=== PATIENT | male | born 2000 | race Caucasian/White ===

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

== ENCOUNTER 2021-06-19 09:52 | Emergency (ER) | payer OTHER ==
[~2021-06-19] VITALS: Ht 167.6 cm; Wt 141.7 kg
[2021-06-19 11:24] VITALS: BP 140/79
== END 2021-06-19 15:14 | disposition home or self-care (01) ==
LOC: M ED 09:52
DX: S93.402A Sprain of unspecified ligament of left ankle, initial encounter (principal); X58.XXXA Exposure to other specified factors, initial encounter; Y92.89 Other specified places as the place of occurrence of the external cause; Y93.9 Activity, unspecified; Y99.0 Civilian activity done for income or pay; F17.200 Nicotine dependence, unspecified, uncomplicated; Z88.0 Allergy status to penicillin

== ENCOUNTER 2021-11-16 20:13 | Emergency (ER) | payer OTHER ==
[~2021-11-16] VITALS: Ht 177.8 cm; Wt 136.4 kg
[2021-11-17] MEDS ORDERED: METH-1164 PO (00:59)
[2021-11-17] MEDS ORDERED: ACETAMINOPHEN 500 MG TAB PO ONE (01:00)
[2021-11-17] MEDS ORDERED: methocarbamoL 500 MG TAB PO ONE (01:00)
[2021-11-17 01:17] VITALS: BP 154/89
== END 2021-11-17 01:22 | disposition home or self-care (01) ==
LOC: M ED 20:13
DX: R52 Pain, unspecified (principal); F17.200 Nicotine dependence, unspecified, uncomplicated; Z88.0 Allergy status to penicillin

== ENCOUNTER 2023-09-04 13:10 | Emergency (ER) | payer OTHER ==
[~2023-09-04] VITALS: Ht 175.3 cm; Wt 136.4 kg
[~2023-09-04 13:10] MED LIST: METH-1164 PO
[2023-09-04 14:01] LABS: BASO # 0.1 10^3/uL (0.0-0.2); BASO % 0.7 % (0.0-1.0); EOS # 0.1 10^3/uL (0.0-0.5); EOS % 1.5 % (0.0-3.0); HEMATOCRIT 40.7 % (42.0-52.0); HEMOGLOBIN 14.4 g/dl (13.5-17.5); LYMPH # 1.4 10^3/uL (1.5-5.0); LYMPH % 19.4 % (24.0-44.0); MEAN CORPUSCULAR HEMOGLOBIN 29.9 pg (27.0-33.0); MEAN CORPUSCULAR HGB CONC 35.4 g/dl (32.0-36.5); MEAN CORPUSCULAR VOLUME 84.4 fl (80.0-96.0); MONO # 0.7 10^3/uL (0.0-0.8); MONO % 9.1 % (2.0-8.0); PLATELET COUNT, AUTOMATED 246 10^3/uL (150-450); RED BLOOD COUNT 4.82 10^6/uL (4.30-6.10); WHITE BLOOD COUNT 7.2 10^3/uL (4.0-10.0)
[2023-09-04] MEDS: NS 1,000 ML IV ONE (14:30)
[2023-09-04 14:31] LABS: CK-MB VALUE MASS < 1.0 NG/ML (<3.6)
[2023-09-04 14:32] LABS: CPK CREATINE PHOSPHOKINASE 105 U/L (46-171); MB/CK RELATIVE INDEX 0.95 (< OR =4)
[2023-09-04 15:33] LABS: APPEARANCE, URINE CLEAR (CLEAR); BACTERIA, URINE AUTO NEGATIVE (NEGATIVE); BILIRUBIN, URINE AUTO NEGATIVE (NEGATIVE); BLOOD, URINE BLOOD NEGATIVE (NEGATIVE); COLOR, URINE YELLOW (YELLOW); GLUCOSE, URINE (UA) AUTO NEGATIVE (NEGATIVE); KETONE, URINE AUTO NEGATIVE (NEGATIVE); LEUKOCYTE ESTERASE, URINE AUTO NEGATIVE (NEGATIVE); MUCUS, URINE SMALL (NEGATIVE); NITRITE, URINE AUTO NEGATIVE (NEGATIVE); PROTEIN, URINE AUTO NEGATIVE (NEGATIVE); RBC, URINE AUTO 0 /HPF (0-3); SPECIFIC GRAVITY URINE AUTO 1.014 (1.002-1.035); SQUAMOUS EPITHELIAL CELL UR AU 0 /HPF (0-6); UROBILINOGEN, URINE AUTO 0.2 mg/dL (0.0-2.0); WBC, URINE AUTO 1 /HPF (0-3)
[2023-09-04 15:34] LABS: CK-MB VALUE MASS < 1.0 NG/ML (<3.6)
[2023-09-04 15:35] LABS: BLOOD UREA NITROGEN 13 MG/DL (9-23); CALCIUM LEVEL 9.8 MG/DL (8.5-10.1); CARBON DIOXIDE LEVEL 27 MMOL/L (20-31); CHLORIDE LEVEL 107 MMOL/L (98-107); CPK CREATINE PHOSPHOKINASE 104 U/L (46-171); CREATININE FOR GFR 0.77 MG/DL (0.70-1.30); GLOMERULAR FILTRATION RATE > 60.0 (>60); GLUCOSE, FASTING 117 MG/DL (60-100); MAGNESIUM LEVEL 1.8 MG/DL (1.8-2.4); MB/CK RELATIVE INDEX 0.96 (< OR =4); POTASSIUM SERUM 4.3 MMOL/L (3.5-5.1); SODIUM LEVEL 139 MMOL/L (136-145)
[2023-09-04 15:57] LABS: AMPHETAMINES LEVEL URINE NEGATIVE (NEGATIVE); BARBITURATES URINE NEGATIVE (NEGATIVE); BENZODIAZEPINES URINE NEGATIVE (NEGATIVE); CANNABINOIDS URINE NEGATIVE (NEGATIVE); COCAINE METABOLITE URINE NEGATIVE (NEGATIVE); METHADONE URINE NEGATIVE (NEGATIVE); OPIATES URINE NEGATIVE (NEGATIVE); PHENCYCLIDINE URINE NEGATIVE (NEGATIVE)
[2023-09-04] MEDS ORDERED: PEPC1TAB5 PO (16:10)
[2023-09-04] MEDS ORDERED: PANT40TA29 PO (16:10)
[2023-09-04 16:29] VITALS: BP 138/83; TEMP 97.8; O2SAT 98
== END 2023-09-04 16:35 | disposition home or self-care (01) ==
LOC: M ED 13:10 → EDBD 13:10 → M ED 16:35
DX: K21.9 Gastro-esophageal reflux disease without esophagitis (principal); Z88.1 Allergy status to other antibiotic agents; F17.200 Nicotine dependence, unspecified, uncomplicated

== ENCOUNTER 2025-03-10 18:41 | Emergency (ER) | payer OTHER ==
[~2025-03-10] VITALS: Ht 177.8 cm; Wt 164.5 kg
[~2025-03-10 18:41] MED LIST changes: +PANT40TA29 PO; +PEPC1TAB5 PO
[2025-03-10 20:42] VITALS: BP 134/81; TEMP 97.8; O2SAT 97
== END 2025-03-10 20:47 | disposition home or self-care (01) ==
LOC: M ED 18:41
DX: S16.1XXA Strain of muscle, fascia and tendon at neck level, initial encounter (principal); V48.0XXA Car driver injured in noncollision transport accident in nontraffic accident, initial encounter; F17.200 Nicotine dependence, unspecified, uncomplicated; Y92.410 Unspecified street and highway as the place of occurrence of the external cause; Y93.89 Activity, other specified; Y99.9 Unspecified external cause status; Z88.1 Allergy status to other antibiotic agents; Z79.899 Other long term (current) drug therapy